=== PATIENT | female | born 1985 | race Two or more races ===

== ENCOUNTER 2022-02-12 07:23 | Emergency (ER) | payer SELFPAY ==
[~2022-02-12] VITALS: Ht 170.2 cm; Wt 116.0 kg
[2022-02-12] MEDS ORDERED: SODIUM CHLORIDE 0.9% 1,000 ML IV ONE (08:15)
[2022-02-12 08:16] LABS: Basophils # (auto) 0 10 ^3/uL (0-0.2); Basophils % (auto) 0.4 % (0.0-2.0); Eosinophils # (auto) 0.1 10 ^3/uL (0-0.8); Eosinophils % (auto) 1.4 % (0.0-7.0); Hematocrit 38.3 % (36.0-46.0); Lymphocytes # (auto) 2.2 10 ^3/uL (0.4-5.4); Mean Corpuscular Hemoglobin 30.7 pg (28.0-32.0); Mean Corpuscular Volume 90.4 fL (80.0-100.0); Monocytes # (auto) 0.6 10 ^3/uL (0-1.3); Monocytes % (auto) 7.3 % (0.0-12.0); Neutrophils # (auto) 5.3 10 ^3/uL (1.6-8.6); Neutrophils % (auto) 63.9 % (37.0-80.0); Red Blood Cells 4.24 10^6/uL (4.0-5.20); White Blood Cell 8.3 10^3/uL (4.4-10.8)
[2022-02-12 08:36] LABS: Calcium 8.8 mg/dL (8.5-10.1)
[2022-02-12 08:43] LABS: BUN/Creatinine Ratio 11.3; Bilirubin, Total 0.7 mg/dL (0.2-1.0); Total Protein 7.3 g/dL (6.4-8.2)
[2022-02-12 10:11] LABS: Urine Bacteria FEW /hpf (None Seen); Urine Blood Negative /uL (Negative); Urine Mucus FEW (None Seen); Urine Specific Gravity 1.033 (1.001-1.035); Urine WBC 5 /hpf (0 - 5)
[2022-02-12] MEDS ORDERED: POTASSIUM EFFERVESENT TAB 25 MEQ PO ONE (10:30)
[2022-02-12] MEDS ORDERED: IOHEXOL 300 MG/ML 100ML BOTTLE IJ ONE (10:36)
[2022-02-12] MEDS ORDERED: ONDANSETRON HCL 4 MG/2 ML VIAL IV ONE (10:45)
[2022-02-12] MEDS ORDERED: ACETAMINOPHEN 325 MG TAB PO ONE (10:45)
[2022-02-12] MEDS ORDERED: MORPHINE SULFATE INJ 2 MG/ml SYRG IV ONE (12:00)
[2022-02-12] MEDS ORDERED: METR500T14 PO (12:00)
[2022-02-12] MEDS ORDERED: CIPR-173 PO (12:00)
[2022-02-12 13:16] VITALS: BP 120/76
== END 2022-02-12 13:17 | disposition home or self-care (01) ==
LOC: ER 07:23
DX: K57.32 Diverticulitis of large intestine without perforation or abscess without bleeding (principal); R10.2 Pelvic and perineal pain; Z88.6 Allergy status to analgesic agent; Z88.8 Allergy status to other drugs, medicaments and biological substances
CPT/HCPCS: 36415; 74177; 80053; 81001; 81025; 84702; 85025; 96361; 96374; 96375; 99285; J2270; J2405; J7030; Q9967

== ENCOUNTER 2024-03-22 05:29 | Inpatient (IN) | payer MEDICAID ==
[~2024-03-22] VITALS: Ht 170.2 cm; Wt 103.3 kg
[~2024-03-22 05:29] MED LIST: CHL25C PO; CIPR-173 PO; METR-344 PO
[2024-03-22 06:53] LABS: Urine Bacteria None Seen /hpf (None Seen)
[2024-03-22 07:02] VITALS: PULSE 71; RESP 16; O2SAT 97
[2024-03-22] MEDS: ONDANSETRON HCL 4 MG/2 ML VIAL IV ONE ×2 (07:04→08:18)
[2024-03-22] MEDS: SODIUM CHLORIDE 0.9% 1,000 ML IV ONE ×2 (07:04→11:11)
[2024-03-22] MEDS: MORPHINE SULFATE INJ 2 MG/ml SYRG IV ONE (07:04)
[2024-03-22 07:13] LABS: Basophils # (auto) 0 10 ^3/uL (0-0.2); Basophils % (auto) 0.4 % (0.0-2.0); Lymphocytes # (auto) 2.6 10 ^3/uL (0.4-5.4); Monocytes # (auto) 0.4 10 ^3/uL (0-1.3); Nucleated Red Blood Cells % 0.1 %; White Blood Cell 6.5 10^3/uL (4.4-10.8)
[2024-03-22 07:16] LABS: Eosinophils # (auto) 0.1 10 ^3/uL (0-0.8); Eosinophils % (auto) 2.3 % (0.0-7.0); Hematocrit 31.7 % (36.0-46.0); Hemoglobin 10.5 g/dL (12.2-16.2); Lymphocytes % (auto) 40.4 % (10.0-50.0); Mean Corpuscular Hemoglobin 24.3 pg (28.0-32.0); Mean Corpuscular Volume 73.6 fL (80.0-100.0); Monocytes % (auto) 6.1 % (0.0-12.0); Neutrophils # (auto) 3.3 10 ^3/uL (1.6-8.6); Neutrophils % (auto) 50.8 % (37.0-80.0); Platelet Count (auto) 233 10^3/uL (140-450); Red Blood Cells 4.31 10^6/uL (4.0-5.20)
[2024-03-22 07:27] LABS: Chloride 109 mmol/L (98-107); Potassium 3.5 mmol/L (3.5-5.1); Sodium 138 mmol/L (136-145)
[2024-03-22 07:28] LABS: Anion Gap 7 (5-15); Carbon Dioxide 22 mmol/L (20-30)
[2024-03-22 07:29] LABS: Calcium 9.1 mg/dL (8.7-10.4)
[2024-03-22 07:33] LABS: BUN/Creatinine Ratio 22.6 (10.0-20.0); Blood Urea Nitrogen 14 mg/dL (9-23); Glucose 103 mg/dL (74-106)
[2024-03-22 07:46] LABS: Urine Blood Negative /uL (Negative); Urine Clarity Turbid (Clear); Urine Color Yellow (Yellow); Urine Hyaline Cast FEW /lpf (0 - 2); Urine Mucus FEW (None Seen); Urine Protein, UAD TRACE (Negative); Urine Specific Gravity 1.034 (1.001-1.035); Urine Urobilinogen Normal (Negative); Urine WBC 3 /hpf (0 - 5); Urine pH 5.5 (5.0-9.0)
[2024-03-22 07:48] VITALS: PULSE 62; RESP 18; O2SAT 95
[2024-03-22] MEDS: MORPHINE SULFATE 4 MG/ML SYR/VIAL IV ONE (08:24)
[2024-03-22] MEDS ORDERED: ONDANSETRON HCL 4 MG/2 ML VIAL IV PRN (10:30)
[2024-03-22] MEDS ORDERED: HYDROcodone-ACET 5/325MG TAB PO PRN (10:30)
[2024-03-22] MEDS: MORPHINE SULFATE INJ 2 MG/ml SYRG IV PRN (11:28)
[2024-03-22 11:31] LABS: Albumin 4.8 g/dL (3.2-4.8); Bilirubin, Direct 0.1 mg/dL (<0.3); Bilirubin, Total 0.4 mg/dL (0.2-1.0); Total Protein 7.3 g/dL (5.7-8.2)
[2024-03-22 13:00] VITALS: BP 125/63; PULSE 52; RESP 17; TEMP 97.7; O2SAT 98
[2024-03-23] MEDS ORDERED: cefTRIAXone 1GM/50ML D5W 50 ML IV SCH (09:00)
[2024-03-23] MEDS ORDERED: METH-1182 PO (17:51)
[2024-03-23] MEDS ORDERED: PREG50CA PO (17:51)
[2024-03-23] MEDS ORDERED: OXYC325T14 PO (17:54)
[2024-03-23] MEDS ORDERED: DICL1GEL59 EX (17:54)
== END 2024-03-22 14:00 | disposition left against medical advice (07) | DRG 463 ==
LOC: ER 05:29 → OVERFLOW 10:29 → CENTRAL 11:43
PROVIDERS: ADMIT Registered Nurse General Practice; ATTEND Registered Nurse General Practice
DX: N30.00 Acute cystitis without hematuria (principal); R16.0 Hepatomegaly, not elsewhere classified; K76.0 Fatty (change of) liver, not elsewhere classified; G89.4 Chronic pain syndrome; Z53.29 Procedure and treatment not carried out because of patient's decision for other reasons; K57.30 Diverticulosis of large intestine without perforation or abscess without bleeding; Z90.49 Acquired absence of other specified parts of digestive tract; Z87.442 Personal history of urinary calculi; Z98.84 Bariatric surgery status; Z79.899 Other long term (current) drug therapy
CPT/HCPCS: 36415; 74176; 80048; 80076; 81001; 81025; 85025; G0378; J2405

== ENCOUNTER 2024-03-23 06:04 | Inpatient (IN) | payer MEDICAID ==
[~2024-03-23] VITALS: Ht 170.2 cm; Wt 105.5 kg
[2024-03-23 06:59] LABS: Chloride 114 mmol/L (98-107); Potassium 3.9 mmol/L (3.5-5.1); Sodium 140 mmol/L (136-145)
[2024-03-23 07:00] LABS: Anion Gap 7 (5-15); Carbon Dioxide 19 mmol/L (20-30)
[2024-03-23 07:01] LABS: Calcium 9.3 mg/dL (8.7-10.4)
[2024-03-23 07:05] LABS: BUN/Creatinine Ratio 15.9 (10.0-20.0); Blood Urea Nitrogen 11 mg/dL (9-23); Glucose 97 mg/dL (74-106)
[2024-03-23 07:19] LABS: Basophils # (auto) 0 10 ^3/uL (0-0.2); Basophils % (auto) 0.5 % (0.0-2.0); Eosinophils # (auto) 0.2 10 ^3/uL (0-0.8); Eosinophils % (auto) 2.3 % (0.0-7.0); Hematocrit 32.2 % (36.0-46.0); Hemoglobin 10.5 g/dL (12.2-16.2); Lymphocytes # (auto) 2.7 10 ^3/uL (0.4-5.4); Lymphocytes % (auto) 31.7 % (10.0-50.0); Mean Corpuscular Hemoglobin 24.7 pg (28.0-32.0); Mean Corpuscular Hgb Conc. 32.8 g/dL (32.0-36.0); Mean Corpuscular Volume 75.5 fL (80.0-100.0); Monocytes # (auto) 0.6 10 ^3/uL (0-1.3); Monocytes % (auto) 6.9 % (0.0-12.0); Neutrophils # (auto) 5.1 10 ^3/uL (1.6-8.6); Neutrophils % (auto) 58.6 % (37.0-80.0); Nucleated Red Blood Cells % 0.1 %; Platelet Count (auto) 241 10^3/uL (140-450); Red Blood Cells 4.26 10^6/uL (4.0-5.20); Red Cell Distribution Width 15.4 % (11.8-14.3); White Blood Cell 8.6 10^3/uL (4.4-10.8)
[2024-03-23 14:31] LABS: Urine Bacteria FEW /hpf (None Seen); Urine Blood Negative /uL (Negative); Urine Clarity Turbid (Clear); Urine Color Colorless (Yellow); Urine Protein, UAD Negative (Negative); Urine Specific Gravity 1.018 (1.001-1.035); Urine Urobilinogen Normal (Negative); Urine WBC 4 /hpf (0 - 5); Urine pH 5.5 (5.0-9.0)
[2024-03-23] MEDS: ONDANSETRON HCL 4 MG/2 ML VIAL IV ONE (14:55)
[2024-03-23] MEDS: MORPHINE SULFATE INJ 2 MG/ml SYRG IV ONE (14:55)
[2024-03-23] MEDS ORDERED: MORPHINE SULFATE INJ 2 MG/ml SYRG IV PRN (15:00)
[2024-03-23] MEDS: SODIUM CHLORIDE 0.9% 1,000 ML IV SCH (15:03)
[2024-03-23] MEDS: HYDROcodone-ACET 5/325MG TAB PO PRN (16:28)
[2024-03-23] MEDS: cefTRIAXone 1GM/50ML D5W 50 ML IV SCH (16:56)
[2024-03-23 17:23] VITALS: PULSE 57; RESP 18; O2SAT 97
[2024-03-23 17:40] VITALS: BP 137/76; PULSE 57; RESP 16; TEMP 98.3; O2SAT 97
[2024-03-23] MEDS ORDERED: PREG50CA PO (17:51)
[2024-03-23] MEDS ORDERED: METH-1182 PO (17:51)
[2024-03-23] MEDS ORDERED: DICL1GEL59 EX (17:54)
[2024-03-23] MEDS ORDERED: OXYC325T14 PO (17:54)
[2024-03-23 21:05] VITALS: BP 144/76; PULSE 97; RESP 20; TEMP 97.8; O2SAT 100
[2024-03-23] MEDS: metroNIDAZOLE 500MG/100ML 100 ML IV SCH (21:12)
[2024-03-23] MEDS: MORPHINE SULFATE INJ 2 MG/ml SYRG IV PRN (21:17)
[2024-03-24 05:00] VITALS: BP 117/52; PULSE 78; RESP 19; TEMP 98; O2SAT 97
[2024-03-24 06:09] LABS: Anion Gap 6 (5-15); Carbon Dioxide 22 mmol/L (20-30); Chloride 115 mmol/L (98-107); Potassium 3.5 mmol/L (3.5-5.1); Sodium 143 mmol/L (136-145)
[2024-03-24 06:10] LABS: Basophils # (auto) 0 10 ^3/uL (0-0.2); Calcium 8.8 mg/dL (8.7-10.4); Eosinophils # (auto) 0.2 10 ^3/uL (0-0.8); Lymphocytes # (auto) 1.9 10 ^3/uL (0.4-5.4); Monocytes # (auto) 0.5 10 ^3/uL (0-1.3); White Blood Cell 5.1 10^3/uL (4.4-10.8)
[2024-03-24 06:11] LABS: Basophils % (auto) 0.4 % (0.0-2.0); Eosinophils % (auto) 3.4 % (0.0-7.0); Hematocrit 28.3 % (36.0-46.0); Hemoglobin 9.3 g/dL (12.2-16.2); Lymphocytes % (auto) 37.2 % (10.0-50.0); Mean Corpuscular Hemoglobin 24.5 pg (28.0-32.0); Mean Corpuscular Volume 74.3 fL (80.0-100.0); Monocytes % (auto) 9.4 % (0.0-12.0); Neutrophils # (auto) 2.5 10 ^3/uL (1.6-8.6); Neutrophils % (auto) 49.6 % (37.0-80.0); Platelet Count (auto) 189 10^3/uL (140-450); Red Cell Distribution Width 15.3 % (11.8-14.3)
[2024-03-24 06:15] LABS: BUN/Creatinine Ratio 8.8 (10.0-20.0); Blood Urea Nitrogen 6 mg/dL (9-23); Glucose 89 mg/dL (74-106)
[2024-03-24 08:00] VITALS: PULSE 58; RESP 16; O2SAT 9
[2024-03-24 09:00] VITALS: BP 107/54; PULSE 58; RESP 16; TEMP 97.8; O2SAT 97
[2024-03-24] MEDS: ONDANSETRON HCL 4 MG/2 ML VIAL IV PRN (09:42)
[2024-03-24] MEDS: PANTOPRAZOLE 40 MG/10 ML VIAL INJ IV SCH (09:56)
[2024-03-24] MEDS: LACTATED RINGER'S 1,000 ML IV SCH (11:28)
[2024-03-24 13:00] VITALS: BP 129/63; PULSE 67; RESP 14; TEMP 97.8; O2SAT 99
[2024-03-24 16:41] VITALS: BP 111/56; PULSE 50; RESP 20; TEMP 97.5; O2SAT 97
[2024-03-24] MEDS: HYDROcodone-ACET 10/325MG TAB PO PRN (19:08)
[2024-03-24 19:32] LABS: Alanine Aminotransferase 34 U/L (7-40); Albumin 4.1 g/dL (3.2-4.8); Alkaline Phosphatase 68 U/L (46-116); Aspartate Aminotransferase 19 U/L (13-40); Bilirubin, Total 0.2 mg/dL (0.2-1.0); Lipase 25 U/L (12-53); Total Protein 6.2 g/dL (5.7-8.2)
[2024-03-24 19:49] LABS: Bilirubin, Direct < 0.1 mg/dL (<0.3)
[2024-03-24 21:00] VITALS: BP 131/67; PULSE 77; RESP 16; TEMP 97.3; O2SAT 96
[2024-03-25] VITALS (7 sets, daily range): BP systolic 118–145; BP diastolic 61–70; PULSE 56–85; RESP 16–22; TEMP 97.8–98.4; O2SAT 95–98
[2024-03-25 06:51] LABS: Basophils # (auto) 0 10 ^3/uL (0-0.2); Eosinophils # (auto) 0.2 10 ^3/uL (0-0.8); Hemoglobin 9.3 g/dL (12.2-16.2); Lymphocytes # (auto) 2.6 10 ^3/uL (0.4-5.4); Mean Corpuscular Hemoglobin 24.9 pg (28.0-32.0); Monocytes # (auto) 0.5 10 ^3/uL (0-1.3); Neutrophils # (auto) 2.1 10 ^3/uL (1.6-8.6)
[2024-03-25 06:55] LABS: Basophils % (auto) 0.5 % (0.0-2.0); Eosinophils % (auto) 3.3 % (0.0-7.0); Hematocrit 27.6 % (36.0-46.0); Lymphocytes % (auto) 48.7 % (10.0-50.0); Mean Corpuscular Hgb Conc. 33.6 g/dL (32.0-36.0); Mean Corpuscular Volume 74.1 fL (80.0-100.0); Monocytes % (auto) 8.9 % (0.0-12.0); Neutrophils % (auto) 38.6 % (37.0-80.0); Platelet Count (auto) 192 10^3/uL (140-450); Red Blood Cells 3.72 10^6/uL (4.0-5.20); Red Cell Distribution Width 15.5 % (11.8-14.3); White Blood Cell 5.3 10^3/uL (4.4-10.8)
[2024-03-25 07:12] LABS: Alanine Aminotransferase 31 U/L (7-40); Alkaline Phosphatase 67 U/L (46-116); Anion Gap 8 (5-15); Aspartate Aminotransferase 15 U/L (13-40); BUN/Creatinine Ratio 9.7 (10.0-20.0); Bilirubin, Total 0.3 mg/dL (0.2-1.0); Blood Urea Nitrogen 6 mg/dL (9-23); Carbon Dioxide 24 mmol/L (20-30); Chloride 113 mmol/L (98-107); Glucose 92 mg/dL (74-106); Potassium 3.4 mmol/L (3.5-5.1); Sodium 145 mmol/L (136-145); Total Protein 6.2 g/dL (5.7-8.2)
[2024-03-25] MEDS ORDERED: oxyCODONE ER 20 MG TAB PO PRN (14:45)
[2024-03-25] MEDS: oxyCODONE HCL 5MG TAB PO PRN (15:43)
[2024-03-26 07:56] LABS: Basophils # (auto) 0 10 ^3/uL (0-0.2); Eosinophils # (auto) 0.1 10 ^3/uL (0-0.8); Hematocrit 27.9 % (36.0-46.0); Hemoglobin 9.4 g/dL (12.2-16.2); Lymphocytes # (auto) 2.3 10 ^3/uL (0.4-5.4); Monocytes # (auto) 0.5 10 ^3/uL (0-1.3); Red Blood Cells 3.77 10^6/uL (4.0-5.20); White Blood Cell 6.3 10^3/uL (4.4-10.8)
[2024-03-26 07:59] LABS: Basophils % (auto) 0.4 % (0.0-2.0); Eosinophils % (auto) 2.1 % (0.0-7.0); Lymphocytes % (auto) 35.9 % (10.0-50.0); Mean Corpuscular Hemoglobin 24.9 pg (28.0-32.0); Mean Corpuscular Hgb Conc. 33.6 g/dL (32.0-36.0); Monocytes % (auto) 8.2 % (0.0-12.0); Neutrophils # (auto) 3.4 10 ^3/uL (1.6-8.6); Neutrophils % (auto) 53.4 % (37.0-80.0); Nucleated Red Blood Cells % 0.1 %; Platelet Count (auto) 186 10^3/uL (140-450); Red Cell Distribution Width 15.4 % (11.8-14.3)
[2024-03-26 08:00] LABS: Alanine Aminotransferase 27 U/L (7-40); Albumin 4.1 g/dL (3.2-4.8); Alkaline Phosphatase 69 U/L (46-116); Anion Gap 9 (5-15); Aspartate Aminotransferase 16 U/L (13-40); BUN/Creatinine Ratio 12.3 (10.0-20.0); Bilirubin, Total 0.4 mg/dL (0.2-1.0); Blood Urea Nitrogen 7 mg/dL (9-23); Calcium 9.1 mg/dL (8.7-10.4); Carbon Dioxide 24 mmol/L (20-30); Chloride 110 mmol/L (98-107); Glucose 93 mg/dL (74-106); Magnesium 1.8 mg/dL (1.6-2.6); Phosphorus 3.6 mg/dL (2.4-5.1); Sodium 143 mmol/L (136-145); Total Protein 6.2 g/dL (5.7-8.2)
[2024-03-26 09:00] VITALS: BP 124/68; PULSE 44; RESP 15; TEMP 97.6; O2SAT 98
[2024-03-26] MEDS: PREGABALIN 25 MG CAP PO SCH (10:09)
[2024-03-26] MEDS ORDERED: OMNIPAQUE 12mg/ml 500ml ORAL SOLUTION PO ONE (10:32)
[2024-03-26] MEDS ORDERED: IOHEXOL 300 MG/ML 100ML BOTTLE IJ ONE (11:44)
[2024-03-26] MEDS: POTASSIUM CHLORIDE 40 MEQ, LIDOCAINE 1% (LOCAL ANESTH.) 4 ML in SODIUM CHL 0.9% 250 ML IV ONE (12:14)
[2024-03-26 12:39] VITALS: BP 132/76; PULSE 48; RESP 16; TEMP 97.6; O2SAT 97
[2024-03-26 16:40] VITALS: BP 143/67; PULSE 67; RESP 17; TEMP 98.1; O2SAT 98
[2024-03-26] MEDS: POTASSIUM CHL 20 Meq TABLET PO ONE (18:30)
[2024-03-26] MEDS: MORPHINE SULFATE INJ 2 MG/ml SYRG IV PRN (18:40)
[2024-03-26 20:00] VITALS: PULSE 56; RESP 18; O2SAT 96
[2024-03-26 20:35] VITALS: BP 139/73; PULSE 56; RESP 18; TEMP 98.2; O2SAT 96
[2024-03-27 05:07] VITALS: BP 149/84; PULSE 70; RESP 20; TEMP 98.2; O2SAT 94
[2024-03-27 07:10] LABS: Basophils # (auto) 0 10 ^3/uL (0-0.2); Basophils % (auto) 0.4 % (0.0-2.0); Eosinophils # (auto) 0.1 10 ^3/uL (0-0.8); Lymphocytes # (auto) 2.9 10 ^3/uL (0.4-5.4); Monocytes # (auto) 0.4 10 ^3/uL (0-1.3); Neutrophils # (auto) 2.2 10 ^3/uL (1.6-8.6); Nucleated Red Blood Cells % 0.1 %; Red Blood Cells 4.22 10^6/uL (4.0-5.20)
[2024-03-27 07:12] LABS: Eosinophils % (auto) 2.3 % (0.0-7.0); Hematocrit 31.1 % (36.0-46.0); Hemoglobin 10.3 g/dL (12.2-16.2); Lymphocytes % (auto) 51.1 % (10.0-50.0); Mean Corpuscular Hemoglobin 24.4 pg (28.0-32.0); Mean Corpuscular Hgb Conc. 33.2 g/dL (32.0-36.0); Mean Corpuscular Volume 73.6 fL (80.0-100.0); Monocytes % (auto) 7.4 % (0.0-12.0); Neutrophils % (auto) 38.8 % (37.0-80.0); Platelet Count (auto) 197 10^3/uL (140-450); Red Cell Distribution Width 15.6 % (11.8-14.3); White Blood Cell 5.8 10^3/uL (4.4-10.8)
[2024-03-27 07:34] LABS: Anion Gap 9 (5-15); Carbon Dioxide 27 mmol/L (20-30); Chloride 108 mmol/L (98-107); Potassium 3.1 mmol/L (3.5-5.1); Sodium 144 mmol/L (136-145)
[2024-03-27 07:35] LABS: Calcium 9.3 mg/dL (8.7-10.4)
[2024-03-27 07:40] LABS: Glucose 89 mg/dL (74-106)
[2024-03-27 07:46] LABS: Blood Urea Nitrogen < 5 mg/dL (9-23)
[2024-03-27 08:05] LABS: BUN/Creatinine Ratio 8.6 (10.0-20.0)
[2024-03-27 08:06] LABS: Thyroxine (T4) 7.2 ug/dL (4.5-12.0)
[2024-03-27 08:10] VITALS: BP_SYST 114; BP_SYST 146; BP_DIAS 73; BP_DIAS 78; PULSE 59; PULSE 86; RESP 20; TEMP 97.6; TEMP 97.8; O2SAT 96; O2SAT 98
[2024-03-27] MEDS: POTASSIUM CHL 20 Meq TABLET PO ONE (08:44)
[2024-03-27 12:10] VITALS: BP 133/64; PULSE 57; RESP 18; TEMP 97.6; O2SAT 98
== END 2024-03-27 14:45 | disposition home or self-care (01) | DRG 249 ==
LOC: ER 06:04 → OVERFLOW 14:54 → EAST 17:32
PROVIDERS: ADMIT Internal Medicine Geriatric Medicine; ATTEND Internal Medicine Geriatric Medicine
DX: A09 Infectious gastroenteritis and colitis, unspecified (principal); K76.0 Fatty (change of) liver, not elsewhere classified; E87.6 Hypokalemia; G89.4 Chronic pain syndrome; K57.30 Diverticulosis of large intestine without perforation or abscess without bleeding; N30.00 Acute cystitis without hematuria; Z90.49 Acquired absence of other specified parts of digestive tract; Z98.84 Bariatric surgery status; Z87.442 Personal history of urinary calculi; Z82.61 Family history of arthritis; Z79.899 Other long term (current) drug therapy
CPT/HCPCS: 36415; 71045; 74177; 76604; 76705; 80048; 80053; 80076; 81001; 82270; 82306; 82607; 83036; 83690; 83735; 83986; 84100; 84443; 84702; 85025; 85048; 87045; 87086; 87427; 87493; 96374; 96375; 99291; G0378; J2001; J2405; J2470; J3490

== ENCOUNTER → 2024-08-13 | Outpatient (CLI) | payer MEDICAID ==
[~2024-08-13] MED LIST changes: -CHL25C PO; -CIPR-173 PO; +DICL1GEL59 EX; +METH-1182 PO; -METR-344 PO; +OXYC325T14 PO; +PREG50CA PO
[2024-08-13 11:19] LABS: Basophils # (auto) 0 10 ^3/uL (0-0.2); Basophils % (auto) 0.4 % (0.0-2.0); Eosinophils # (auto) 0 10 ^3/uL (0-0.8); Eosinophils % (auto) 0.8 % (0.0-7.0); Hemoglobin 9.1 g/dL (12.2-16.2); Neutrophils # (auto) 2.8 10 ^3/uL (1.6-8.6)
[2024-08-13 11:22] LABS: Hematocrit 28.7 % (36.0-46.0); Lymphocytes # (auto) 1.9 10 ^3/uL (0.4-5.4); Lymphocytes % (auto) 37.6 % (10.0-50.0); Mean Corpuscular Hemoglobin 23.2 pg (28.0-32.0); Mean Corpuscular Hgb Conc. 31.8 g/dL (32.0-36.0); Mean Corpuscular Volume 72.8 fL (80.0-100.0); Monocytes # (auto) 0.3 10 ^3/uL (0-1.3); Monocytes % (auto) 5.3 % (0.0-12.0); Neutrophils % (auto) 55.9 % (37.0-80.0); Platelet Count (auto) 202 10^3/uL (140-450); Red Blood Cells 3.94 10^6/uL (4.0-5.20); Red Cell Distribution Width 18.6 % (11.8-14.3)
[2024-08-13 12:01] LABS: Alanine Aminotransferase 15 U/L (7-40); Albumin 4.6 g/dL (3.2-4.8); Alkaline Phosphatase 62 U/L (46-116); Anion Gap 8 (5-15); BUN/Creatinine Ratio 12.5 (10.0-20.0); Calcium 9.3 mg/dL (8.7-10.4); Carbon Dioxide 23 mmol/L (20-31); LDL Cholesterol 53 mg/dL (< 100); Potassium 3.5 mmol/L (3.5-5.1); Sodium 138 mmol/L (136-145); Triglycerides 71 mg/dL (< 150)
[2024-08-13 12:02] LABS: Bilirubin, Total 0.3 mg/dL (0.2-1.0); Cholesterol 94 mg/dL (< 200); Total Protein 6.7 g/dL (5.7-8.2)
[2024-08-13 12:07] LABS: Aspartate Aminotransferase 10 U/L (13-40); Blood Urea Nitrogen 8 mg/dL (9-23); Chloride 107 mmol/L (98-107); Glucose 129 mg/dL (74-106)
[2024-08-13 12:08] LABS: HDL Cholesterol 33 mg/dL (40-59)
[2024-08-13 12:14] LABS: Beta HCG, Quantitative 153945.3 mIU/mL (1.5-4.2); Thyroid Stimulating Hormone 2.12 uIU/mL (0.55-4.78)
[2024-08-13 12:40] LABS: Opiate Scree,Urine Neg (NEGATIVE)
[2024-08-13 12:46] LABS: Amphetamine Screen, Urine Neg (NEGATIVE); Barbiturate Scree,Urine Neg (NEGATIVE); Benzodiazephine Screen, Urine Neg (NEGATIVE); Cannabinoid Screen, Urine Neg (NEGATIVE); Cocaine Screen, Urine Neg (NEGATIVE); Phencyclidine Screen, Urine Neg (NEGATIVE)
[2024-08-14 08:06] LABS: RPR Non Reactive (Non Reactive)
[2024-08-14 19:06] LABS: Chlamydia Trachomatis, NAA Negative (Negative); Neisseria gonorrhoeae, NAA Negative (Negative)
[2024-08-15 03:06] LABS: Varicella Zoster IgG Antibody Reactive (Non Reactive)
== END | disposition home or self-care (01) ==
LOC: LAB 10:21
PROVIDERS: ATTEND Obstetrics & Gynecology
DX: O23.40 Unspecified infection of urinary tract in pregnancy, unspecified trimester (principal); Z31.430 Encounter of female for testing for genetic disease carrier status for procreative management; Z36.0 Encounter for antenatal screening for chromosomal anomalies; N39.0 Urinary tract infection, site not specified; Z3A.00 Weeks of gestation of pregnancy not specified
CPT/HCPCS: 36415; 80053; 80061; 80307; 83036; 84439; 84443; 84702; 85025; 86592; 86703; 86787; 86850; 86900; 86901; 87086; 87340; 87902